=== PATIENT | male | born 1950 | race Caucasian/White ===

== ENCOUNTER → 2019-04-22 | Outpatient (CLI) | payer MEDICARE ==
--- NOTE | 2019-04-22 11:01 | REP ---
Abdominal aortic ultrasound: The the patient has an abdominal aortic aneurysm with an endovascular stent. There is thrombus within the aneurysm, however, there is vascular flow in the stent. Abdominal aorta ultrasound: Abdominal Aortic Measurements are as follows: Proximal 2.8 cm AP 2.8 cm TRV Renal Artery Level obscured cm AP obscured cm TRV Mid Aorta 2.4 cm AP 3.1 cm TRV Distal Aorta 6.4 cm AP 6.0 cm TRV R Iliac Artery 2.4 cm AP 1.9 cm TRV L Iliac Artery 2.3 cm AP 2.2 cm TRV The known abdominal aortic aneurysm measures 6.4 cm AP by 6.0 cm transversely and spans a craniocaudad length of 9.5 cm. There is thrombus within the aneurysm, however there is vascular flow within the stent. No evidence of endovascular leak is identified by ultrasound. Electronically Signed by Win Mclaughlin MD 04/22/2019 10:54 A
--- NOTE | 2019-04-22 11:08 | REP ---
Bilateral lower extremity duplex vascular arterial ultrasound: Right lower extremity: Brachial artery peak systole: 170 mmHg. Dorsalis pedis peak systole: 170 mmHg. BUILDINGS AND GROUNDS DIRECTOR peak systole: 180 mmHg. ADDIE 1.05 Peak Systolic Phasicity Velocity SINGLE STAYER OPERATOR 92 triphasic Profunda 5.3 biphasic SFA prox 68 triphasic SFA mid 92 triphasic SFA dist 84 triphasic Pop 55 biphasic ABRAM prox 63 triphasic Tib/P tr 55 by/triphasic BUILDINGS AND GROUNDS DIRECTOR pr 75 triphasic BUILDINGS AND GROUNDS DIRECTOR dst 65 triphasic ABRAM dst 62 triphasic Left lower extremity: Brachial artery peak systole: 170 mmHg. Dorsalis pedis peak systole: 170 mmHg. BUILDINGS AND GROUNDS DIRECTOR peak systole: 180 mmHg. ADDIE: 1.05. Peak Systolic Phasicity Velocity SINGLE STAYER OPERATOR 73 triphasic Profunda 45 biphasic SFA prox 80 triphasic SFA mid 79 triphasic SFA dist 70 triphasic Pop 68 triphasic ABRAM prox 77 biphasic Tib/P tr 52 biphasic BUILDINGS AND GROUNDS DIRECTOR pr 60 triphasic BUILDINGS AND GROUNDS DIRECTOR dst 50 triphasic ABRAM dst 40 biphasic Impression: There is mild atheromatous plaque throughout both lower extremities. No significant stenosis is identified on the right on the left. Electronically Signed by Win Mclaughlin MD 04/22/2019 10:59 A
[2019-04-22 17:14] LABS: MEAN CORPUSCULAR HEMOGLOBIN 33.2 pg (27.0-33.0); MEAN CORPUSCULAR HGB CONC 33.3 g/dl (32.0-36.5); MEAN CORPUSCULAR VOLUME 99.6 fl (80.0-96.0); PLATELET COUNT, AUTOMATED 161 10^3/uL (150-450); RED BLOOD COUNT 4.52 10^6/uL (4.30-6.10); WHITE BLOOD COUNT 8.9 10^3/uL (4.0-10.0)
[2019-04-22 17:35] LABS: BLOOD UREA NITROGEN 23 MG/DL (7-18); CALCIUM LEVEL 8.8 MG/DL (8.8-10.2); CARBON DIOXIDE LEVEL 28 MEQ/L (21-32); CHLORIDE LEVEL 106 MEQ/L (98-107); CREATININE FOR GFR 1.13 MG/DL (0.70-1.30); GLOMERULAR FILTRATION RATE > 60.0 (>42); GLUCOSE, FASTING 75 MG/DL (70-100); POTASSIUM SERUM 4.3 MEQ/L (3.5-5.1); SODIUM LEVEL 141 MEQ/L (136-145)
== END ==
LOC: M RAD 08:49
PROVIDERS: ATTEND Surgery Vascular Surgery
DX: I70.213 Atherosclerosis of native arteries of extremities with intermittent claudication, bilateral legs (principal); I71.4 Abdominal aortic aneurysm, without rupture; I74.09 Other arterial embolism and thrombosis of abdominal aorta

== ENCOUNTER → 2019-05-07 | Outpatient (CLI) | payer MEDICARE ==
[~2019-05-07] MED LIST: ISOVUE-370 76% 100ML VIAL (Q9967) As Ordered ONE
--- NOTE | 2019-05-08 05:30 | REP ---
Clinical: Abdominal aortic aneurysm. Technique: Axial images obtained from the lung bases to the pubic symphysis with coronal sagittal re-formations and 3-D volume rendered reconstructions using 100 ml Isovue 370 intravenous contrast material imaged for maximal arterial enhancement. Comparison: None. Findings: There is a thrombosed abdominal aortic aneurysm originating approximately 2 cm below the origin of the renal arteries with evidence for aorto-iliac stent graft repair. Contrast flows normally through the normal aorta and stent graft without obvious leakage to the excluded aneurysm which measures 6.1 cm maximal diameter and approximately 6.2 cm in craniocaudal length. Major branch vessels of the abdominal aorta including celiac axis, superior mesenteric artery, bilateral renal arteries as well as the bilateral internal and external iliac arteries below the level of the stent demonstrate normal enhancement without evidence for stenosis or occlusion. Liver, spleen, pancreas, gallbladder, and bilateral adrenal glands are normal. The kidneys demonstrate symmetric enhancement along with bilateral hypodensities suggesting cortical and peripelvic cysts. Mild chronic bilateral perinephric stranding is noted. No hydronephrosis. The enteric system is without obstruction or acute inflammatory process. Normal terminal ileum and appendix are identified in the right lower quadrant. Sigmoid diverticula noted without acute diverticulitis. Pelvis demonstrates collapsed normal bladder and age appropriate prostate gland. No pelvic fluid or ascites. No free air. No adenopathy. Lung bases are clear. Musculoskeletal structures demonstrate age-related degenerative changes without focal abnormality. Impression: 1. Infrarenal abdominal aortic aneurysm status post aortoiliac stent graft placement. No evidence for leakage. 2. Remainder of the aorta and associated major branch vessels appear relatively normal. 3. Bilateral renal hypodensities likely representing cysts. 4. Sigmoid diverticula without acute diverticulitis. Electronically Signed by Arun Coley MD 05/08/2019 05:21 A
== END ==
LOC: M RAD 13:27
PROVIDERS: ATTEND Physician Assistant
DX: I71.4 Abdominal aortic aneurysm, without rupture (principal); Z95.828 Presence of other vascular implants and grafts; K57.90 Diverticulosis of intestine, part unspecified, without perforation or abscess without bleeding
CPT/HCPCS: 74174; Q9967

== ENCOUNTER → 2020-08-26 | Outpatient (CLI) | payer MEDICARE ==
[~2020-08-26] MED LIST changes: -ISOVUE-370 76% 100ML VIAL (Q9967) As Ordered ONE; +ISOVUE-370 76% 100ML VIAL As Ordered ONE
--- NOTE | 2020-08-26 15:48 | REP ---
INDICATION: TAA. COMPARISON: None. TECHNIQUE: Contrast dose: 100 ML of Isovue [address] technique: Helical scanning is acquired and overlapping 1.5 mm and contiguous 3 mm axial images are reformatted. In addition, maximum intensity projection and multiplanar re-formation images are generated in sagittal and coronal imaging projections. FINDINGS: There is good opacification of the thoracic aorta and the pulmonary arterial tree. The ascending aorta measures 4.4 cm in greatest AP dimension at the level of the right main pulmonary artery. Descending aorta measures 2.7 cm. There is no CT evidence of pulmonary embolus. Great vessel origins are unremarkable. There is no hilar or mediastinal mass or adenopathy. No pleural or pericardial effusion seen. 3D surface rendered images of the thoracic aorta show uncoiling or tortuosity. Lung window settings demonstrate no evidence of infiltrate, pulmonary mass, or significant pulmonary nodule. In the upper abdomen, normal adrenal glands are observed. Visualized upper abdominal structures are unremarkable. No bony destructive lesion is seen. IMPRESSION: Ectatic ascending aorta, 4.4 cm in anteroposterior dimension.. <Electronically signed by Jigar Meyer > 08/26/20 [id number]
== END ==
LOC: M RAD 13:59
DX: I71.2 Thoracic aortic aneurysm, without rupture (principal); I71.4 Abdominal aortic aneurysm, without rupture; N28.1 Cyst of kidney, acquired; K57.30 Diverticulosis of large intestine without perforation or abscess without bleeding
CPT/HCPCS: 71275; 74174; Q9967

== ENCOUNTER → 2020-08-26 | Outpatient (CLI) | payer MEDICARE ==
--- NOTE | 2020-08-26 15:57 | REP ---
INDICATION: AAA. COMPARISON: Comparison CT study is from May 07, 2019.. TECHNIQUE: Helical scanning is acquired following the intravenous injection of 100 mL of Isovue 370. 3 mm axial images re-formatted. Coronal and sagittal MPR images are generated. FINDINGS: Preliminary digital director ehs view of the abdomen shows a normal bowel gas pattern. The liver and the spleen are normal in size and homogeneous in texture. No abnormality is noted in the gallbladder or pancreas. Normal adrenal glands are observed. There are 2 cortical cysts visible in the right kidney and 1 small cortical cyst in the left kidney. The largest of these is in the right mid kidney measuring 2.5 cm in greatest diameter. The suprarenal abdominal aorta is normal in caliber measuring 2.4 cm in AP dimension just below the takeoff of the SMA. The celiac axis and SMA axis are nonstenotic. Singular renal arteries are seen. There is evidence of atherosclerotic plaquing and narrowing at the origin of the right renal artery. No definite narrowing is seen at the origin the left renal artery. An aorta bi-iliac stent graft is seen in the infrarenal abdominal aorta. The proximal end of the stent graft is at the renal artery origins. The patient's infrarenal abdominal aortic aneurysm today measures 6.1 cm anteroposterior by 6.1 cm right to left in diameter. Previous measurements were 6.1 x 6.2 cm in 2019. There is no evidence of endoleak. The external iliac arteries are widely patent. The internal iliac arteries are patent. There is an origin stenosis of the internal iliac artery on the left which is associated with some plaquing and which is felt to be unchanged. There is left colonic diverticulosis again seen. IMPRESSION: Infrarenal abdominal aortic aneurysm 6.1 cm in greatest anteroposterior dimension status post aorta bi-iliac stent graft. Stable findings from 2019. Size. Stenos is is seen at the origin of the right renal artery and left internal iliac artery. Small renal cysts and left colonic diverticulosis are incidental findings. <Electronically signed by Jigar Meyer > 08/26/20 [id number]
== END ==
LOC: M RAD 13:56
PROVIDERS: ATTEND Surgery Vascular Surgery
DX: I71.4 Abdominal aortic aneurysm, without rupture (principal); N28.1 Cyst of kidney, acquired; K57.30 Diverticulosis of large intestine without perforation or abscess without bleeding